=== PATIENT | male | born 1965 | race Caucasian/White ===

== ENCOUNTER 2024-01-19 15:40 | Emergency (ER) | payer OTHER, SELFPAY ==
[2024-01-19 15:44] VITALS: BP 158/73
--- NOTE | 2024-01-19 18:12 | ED.GENMED ---
History of Present Illness
General
Chief Complaint: Musculo-Skeletal Complaint
Time Seen by Provider: 01/19/24 18:00
History of Present Illness
History of Present Illness:
58-year-old male presents to the emergency department for evaluation of right hip and low back pain beginning while working today. States that he was unable to stand or walk on the leg however after lying still for several hours his pain has
essentially resolved. Denies any falls or traumatic injuries. Denies any history of similar pain. No fever or chills
Past History
Past History
ED Past Medical History: HTN and Hypercholesterolemia
ED Past Surgical History: None
Social History
Tobacco: Smoker
Alcohol: Occasional
Drug: None
Personal:
Living: with family
Employment: Employed
Family History
Family History: CAD
Review of Systems
Review of Systems
Allergies reviewed?: Yes
All Other Systems: ROS reviewed and negative except as documented in HPI and ROS
Phy Exam
Physical Exam
Physical Exam:
GEN: Well appearing, NAD, WDWN
HEENT: Oral mucosa moist, no scleral icterus
Cardiac: Regular rate
Lung: No respiratory distress, no tachypnea
MSK: No gross deformity or injuries. Right hip range of motion normal in all rider. No bony tenderness to the hip on exam. Lumbar flexion elicits increased pain, negative straight leg raise
Skin: Good color, no pallor or jaundice, no rashes
Neuro: AO x3, moves all extremities freely
Psych: Calm, cooperative
Course
Orders/Labs/Results
Orders:
Orders
01/19/24 15:47
CR Hip - RT w/wo Pel 2-3 Vw* Urgent
Comment:
Reason For Exam: pain
Include a pelvis x-ray?: Yes
Vital Signs
Initial and Last Documented VS:
Initial Vital Signs
Temp Pulse Resp BP Pulse Ox
97.6 F 82 18 158/73 99
01/19/24 15:44 01/19/24 15:44 01/19/24 15:44 01/19/24 15:44 01/19/24 15:44
Last Documented Vital Signs
Temp Pulse Resp BP Pulse Ox
97.6 F 82 18 158/73 99
01/19/24 15:44 01/19/24 15:44 01/19/24 15:44 01/19/24 15:44 01/19/24 15:44
MDM/Problems Addressed
MDM/Problems Addressed:
Hip x-ray showed no evidence of acute pathology. As he has no bony tenderness to the hip I suspect this is a lumbar radiculopathy and will treat accordingly
*Critical Care Note
Total Time (30-74mins, 75-104mins- exclusive of procedures): Not Applicable
ED Attending Note
-
Portions of this chart may have been created with voice recognition software.� Occasional wrong word or��sound alike� substitutions may have occurred due to the inherent limitations of voice recognition software.
Discharge Plan
Departure
Patient Disposition: Home (Routine Discharge)
Date of Disposition: 01/19/24
Time of Disposition: 18:14
Patient with high blood pressure during this ER visit?: No
Discharge Problem:
Lumbar radiculopathy
Instructions: Radiculopathy (DC)
Prescriptions:
New
meloxicam 15 mg tablet
15 mg PO DAILY Qty: 10 0RF
No Action
losartan 100 MG tablet
100 mg PO DAILY
clopidogrel 75 MG tablet
75 mg PO DAILY Qty: 90 5RF
metoprolol succinate 25 MG tablet extended release 24 hr
25 mg PO DAILY Qty: 90 5RF
nitroglycerin 0.4 MG tablet, sublingual
0.4 mg sublingual [id number] PRN (Reason: chest pain) Qty: 25 5RF
atorvastatin [Lipitor] 80 MG tablet
80 mg PO QPM Qty: 90 5RF
aspirin 81 MG tablet,chewable
81 mg PO DAILY Qty: 1 0RF
Referrals:
Timothy Lindquist DO [Family Provider] -
Gonzalo Irwin MD [Active] -
Interventions
Interventions:
*Risk Screen - Suicide Last Done: 01/19/24 15:46
*Neglect/Abuse Screening Last Done: 01/19/24 15:46
*Nursing Disposition Last Done: 01/19/24 18:35
ED-Musculoskeletal Assessment Last Done: 01/19/24 18:35
Discharge Date and Time
Discharge Date/Time: 01/19/24 18:36
Print Language: YORUBA
== END 2024-01-19 18:36 | disposition home or self-care (01) ==
LOC: EMR 15:40
PROVIDERS: EMERGENCY PHYSICIAN Emergency Medicine; FAMILY PHYSICIAN Internal Medicine
DX: M54.16 Radiculopathy, lumbar region (principal); E78.00 Pure hypercholesterolemia, unspecified; I10 Essential (primary) hypertension; F17.200 Nicotine dependence, unspecified, uncomplicated
CPT/HCPCS: 99283; 73502

== ENCOUNTER → 2024-08-07 09:04 | Outpatient (REF) | payer OTHER, SELFPAY | LOC: RCS 09:04 | PROVIDERS: ATTENDING PHYSICIAN Internal Medicine Cardiovascular Disease; FAMILY PHYSICIAN Internal Medicine | DX: I25.10 Atherosclerotic heart disease of native coronary artery without angina pectoris (principal); E78.5 Hyperlipidemia, unspecified; I10 Essential (primary) hypertension; I25.2 Old myocardial infarction; Z95.5 Presence of coronary angioplasty implant and graft; Z01.818 Encounter for other preprocedural examination; I49.3 Ventricular premature depolarization; I34.0 Nonrheumatic mitral (valve) insufficiency | CPT/HCPCS: 93306 ==